=== PATIENT | male | born 1985 | race Caucasian/White ===

== ENCOUNTER 2023-11-09 19:34 | Emergency (ER) | payer MEDICAID ==
[~2023-11-09] VITALS: Ht 167.6 cm; Wt 109.8 kg
[2023-11-09 19:55] VITALS: BP 137/87; PULSE 75; RESP 18; TEMP 98.5; O2SAT 98
[2023-11-09] MEDS: NACL 0.9% 1,000 ML IV SCH (20:38)
[2023-11-09] MEDS: KETOROLAC 30 MG/ML VIAL IVP ONE (20:46)
[2023-11-09] MEDS: ONDANSETRON 4 MG/2 ML VIAL IVP ONE (20:46)
[2023-11-09 20:48] LABS: BASOPHILS # (AUTO) 0.1 K/uL (0.00-0.22); BASOPHILS % (AUTO) 1.3 % (0.0-2.0); EOSINOPHILS # (AUTO) 0.1 K/uL (0-0.4); EOSINOPHILS % (AUTO) 1.2 % (0.0-4.0); HEMATOCRIT 43.9 % (36-52); HEMOGLOBIN 14.9 g/dL (12.0-18.0); LYMPHOCYTES # (AUTO) 1.9 K/uL (2.0-11.5); LYMPHOCYTES % (AUTO) 29.7 % (20.5-51.1); MEAN CORPUSCULAR HEMOGLOBIN 30 pg (27-31); MEAN CORPUSCULAR HGB CONC 34 g/dL (33-37); MONOCYTES # (AUTO) 0.5 K/uL (0.8-1.0); MONOCYTES % (AUTO) 7.6 % (1.7-9.3); NEUTROPHILS # (AUTO) 3.8 K/uL (1.8-7.7); NEUTROPHILS % (AUTO) 60.2 % (42.2-75.2); PLATELET COUNT (AUTO) 247 K/uL (140-450); RED BLOOD CELL COUNT(AUTO) 5.05 MIL/uL (4.20-6.10); RED CELL DISTRIBUTION WIDTH 13.5 % (11.6-13.7); WHITE BLOOD COUNT (AUTO) 6.3 K/uL (4.8-10.8)
[2023-11-09 20:54] LABS: ACETONE, SERUM Negative (NEGATIVE)
[2023-11-09 20:56] LABS: ANION GAP 14.7 (8-16); CALCIUM 9.5 mg/dL (8.5-10.1); CARBON DIOXIDE 25.6 mmol/L (21-32); CREATININE 0.9 mg/dL (0.6-1.3); POTASSIUM 4.3 mmol/L (3.5-5.1)
[2023-11-09 21:01] LABS: APPEARANCE,URINE CLEAR (CLEAR); BILIRUBIN,URINE NEGATIVE (NEGATIVE); BLOOD, URINE NEGATIVE (NEGATIVE); COLOR,URINE YELLOW (YELLOW); LEUKOCYTE ESTERASE ,URINE NEGATIVE (NEGATIVE); NITRITE, URINE NEGATIVE (NEGATIVE); PROTEIN,URINE NEGATIVE (NEGATIVE); UGLUCOSE 3+ (NEGATIVE); UROBILINOGEN,URINE 0.2 EU/dL (0.2 - 1)
[2023-11-09 21:18] LABS: ALBUMIN 3.9 g/dL (3.4-5.0); BILIRUBIN,DIRECT 0.1 mg/dL (0.0-0.3); TOTAL BILIRUBIN 0.4 mg/dL (0.0-1.0); TOTAL PROTEIN, SERUM 7.7 g/dL (6.4-8.2)
[2023-11-09 22:40] VITALS: BP 127/77; PULSE 64; RESP 24
[2023-11-09] MEDS: NACL 0.9% 1,000 ML IV ONE (23:26)
[2023-11-09] MEDS: INSULIN REGULAR, HUMAN 100 UNIT/ML VIAL SUBQ ONE (23:27)
[2023-11-09 23:33] VITALS: O2SAT 95
[2023-11-09] MEDS ORDERED: GLIP5TAB22 PO (23:59)
== END 2023-11-10 00:25 | disposition home or self-care (01) ==
LOC: MED 19:34
DX: E11.65 Type 2 diabetes mellitus with hyperglycemia (principal); Z79.84 Long term (current) use of oral hypoglycemic drugs; Z91.013 Allergy to seafood
CPT/HCPCS: 36415; 80048; 80076; 81003; 82009; 82948; 83690; 84484; 85025; 96361; 96374; 96375; 99284; J1815; J1885; J2405; J7030